=== PATIENT | male | born 1970 | race Caucasian/White ===

== ENCOUNTER 2022-10-13 10:14 | Day surgery (SDC) | payer OTHER, SELFPAY ==
--- NOTE | 2022-10-13 | PATH_ITS ---
[facility] Accession Number: [id number] No. of containers..01 Tissue . 01 Material submitted: . sigmoid colon - SIGMOID COLON POLYP . 01 Diagnosis: Sigmoid Colon, Polyp, Biopsy: Tubular adenoma, three fragments. MRV 10/16/2022 1518 Local . 01 Electronically signed: . Mena Zepeda MD, Pathologist NPI- [id number] . 01 Gross description: . SIGMOID COLON POLYP: Received in formalin are 3 fragment(s) of weston, soft tissue measuring 0.2 x 0.2 x 0.2 cm to 0.4 x 0.3 x 0.2 cm submitted entirely in 1 cassette(s) /MICHAEL 10/14/2022 1926 Local . 01 Pathologist provided ICD-10: D12.5 . 01 CPT . 008512 Specimen Comment: A courtesy copy of this report has been sent to [phone] Performed at: 01 [facility] [address] [place] [address] [address] [facility], [place], [place] [id number] MD Bhaskar Whipple MD Phone: [phone]
[2022-10-13 10:28] VITALS: BP 114/64; PULSE 71; RESP 21; TEMP 36.6; O2SAT 95; BMI 26.2
[2022-10-13] MEDS: LACTATED RINGERS 1,000 ML 200 ML IV (11:00)
--- NOTE | 2022-10-13 11:43 | PM.HP.1 ---
History of Present Illness History of Present Illness Date Patient Seen: 10/13/22 Time Patient Seen: 11:43 Chief complaint: Screening Colonoscopy Narrative: The patient presents for colorectal screening. They have never had any previous examination for such. Grandfather had colon cancer but no first-degree family members with colon cancer. On further history denies any recent gastrointestinal symptoms. No nausea, vomiting, abdominal pain, loss of appetite, unexplained weight loss, change in bowel habits, or blood per rectum. PFSH Medical History (Updated 10/13/22 @ 10:26 by Sayda Petty RN) Hernia Surgical History (Updated 10/13/22 @ 10:26 by Sayda Petty RN) S/P lumbar microdiscectomy Social History household members: spouse Smoking Status: Former smoker alcohol intake: current Meds Home Medications and Allergies Allergies Allergy/AdvReac Type Severity Reaction Status Date / Time No Known Drug Allergies Allergy Verified 10/13/22 10:45 Exam Vital Signs (past 8 hours): - 10/13/22 10:28 Temperature 97.8 F Pulse Rate 71 Respiratory Rate 21 Blood Pressure 114/64 Pulse Oximetry 95 Oxygen Delivery Method Room Air Oxygen Delivery Method Room Air Narrative Exam Narrative: General adult male alert oriented no acute distress Abdomen soft nontender nondistended Assessment & Plan Assessment & Plan narrative: The patient requires colorectal screening and colonoscopy is recommended. Technical details were discussed. Risks, benefits, alternatives explained. Risks including but not limited to myocardial infarction, aspiration, bleeding, pain, missed lesion, incomplete examination, need for further radiographic studies, colonic perforation, and need for major abdominal surgery were discussed. All questions were answered to their satisfaction, and they are in agreement with this plan.
--- NOTE | 2022-10-13 12:17 | PM.OP.COLON ---
Operative Date/Time/Diagnoses Date of procedure: 10/13/22 Time of procedure: 12:17 Pre-op diagnosis: Colorectal screening Post-op diagnosis: other (Colonic polyp x1) Procedure & Clinicians Study performed: Colonoscopy and polypectomy Same procedure as scheduled: Yes Indications: Colorectal screening Surgeon: Trent Verduzco Procedure Notes Procedure in detail: The history and physical was performed/updated and the patient is ASA class is 1. The procedure was discussed in detail with the patient. Potential risks complications including infection, bleeding, missed diagnosis, perforation, need for surgery, and were explained. Their questions were answered and informed consent was obtained. Patient was brought to the procedure room and placed standard monitoring equipment. The patient's vital signs were monitored continuously throughout the entire procedure. Prior to starting time-out was performed. The patient was placed in the left lateral recumbent position. Procedural sedation was administered by anesthesia. Examination began with a thorough inspection of the perianal area there was no evidence of fissures, fistulae, external hemorrhoids or cutaneous malignancy. The colonoscopy scope was then placed into the anal canal and was advanced to the cecum, which was identified by the ileocecal valve, the appendiceal orifice and the confluence of the taenia. The scope was then slowly withdrawn examining colon thoroughly in all directions, irrigating it of any residual stool. Within the sigmoid colon there was a 1 cm polyp which was removed with cold snare in its entirety. The remainder of the colon was unremarkable. The patient tolerated the procedure well. They will be discharged once criteria are met. The prep was of good/excellent quality. The withdrawl time was 7 minutes. Specimen(s): other (Sigmoid polyps) Impression: Colonic polyp x1 Post-procedure Recommendations: High fiber diet Plan for aftercare: Follow-up is dependent on pathology findings Disposition: same day surgery
[2022-10-13 12:18] VITALS: BP 105/66; PULSE 93; RESP 18; TEMP 36.5; O2SAT 95
[2022-10-13 12:23] VITALS: BP 104/60; PULSE 85; RESP 15; TEMP 36.5; O2SAT 97
[2022-10-13 12:27] VITALS: BP 110/55; PULSE 81; RESP 15; TEMP 36.4; O2SAT 98
[2022-10-13 12:35] VITALS: BP 109/79; PULSE 73; RESP 18; TEMP 36.4; O2SAT 99
== END 2022-10-13 12:42 | disposition home or self-care (01) ==
PROVIDERS: PCP Naturopath; Referring Provider Surgery; Visit Provider Surgery
PROC: 0DJD8ZZ Inspection of Lower Intestinal Tract, Via Natural or Artificial Opening Endoscopic (ICD-10-PCS; CPT 45378; principal; 2022-10-13 11:15)
DX: Z12.11 Encounter for screening for malignant neoplasm of colon (principal); D12.5 Benign neoplasm of sigmoid colon
CPT/HCPCS: 45385; J2704

== ENCOUNTER → 2023-08-20 08:00 | Outpatient (CLI) | payer OTHER, SELFPAY | PROVIDERS: PCP Naturopath; Visit Provider Registered Nurse | DX: J02.9 Acute pharyngitis, unspecified (principal) | CPT/HCPCS: 87070 ==

== ENCOUNTER → 2023-08-27 08:51 | Outpatient (CLI) | payer OTHER, SELFPAY ==
--- NOTE | 2023-08-27 08:53 | DI.RAD.S_ITS ---
PROCEDURE: XR CHEST 2V INDICATIONS: Cough TECHNIQUE: 2 views of the chest were acquired. COMPARISON: None. FINDINGS: Surgical changes and devices: None. Lungs and pleura: Increased pulmonary vasculature and peribronchial cuffing. Mediastinum: Mediastinal contours are normal. Heart size is normal. Bones and chest wall: No suspicious bony abnormalities. Soft tissues appear unremarkable. IMPRESSION: Suspect mild pulmonary edema. No consolidative pneumonia. Dictated by: Tej Lam M.D. on 08/27/2023 at 12:42 Approved by: Tej Lam M.D. on 08/27/2023 at 12:42
== END ==
PROVIDERS: PCP Naturopath; Referring Provider Nurse Practitioner Family; Visit Provider Nurse Practitioner Family
DX: R05.9 Cough, unspecified (principal)
CPT/HCPCS: 71046

== ENCOUNTER 2023-08-27 15:04 | Emergency (ER) | payer OTHER, SELFPAY ==
[2023-08-27 15:07] VITALS: BP 132/75; PULSE 113; RESP 20; TEMP 37; O2SAT 93; BMI 25.2
[2023-08-27 15:24] VITALS: BP 121/77; PULSE 103; O2SAT 94
[2023-08-27 15:30] VITALS: BP 131/58; PULSE 100; RESP 24; O2SAT 94
--- NOTE | 2023-08-27 15:42 | ED.GENADULT ---
HPI - General Adult General Chief complaint: Shortness of Breath/Dyspnea Stated complaint: sent by wic/flu/water in lungs Time Seen by Provider: 08/27/23 15:35 Source: patient Mode of arrival: Ambulatory History of Present Illness HPI narrative: 52-year-old male presents with cough, shortness of breath. He was seen in walk-in clinic today earlier with headache, fevers, cough for 12 days. He was sent here for further evaluation. He recently tested negative for strep. He has been trying Tessalon Perles for cough. He notes cough, myalgias to me for about 2 weeks on clarification, denying any recent antibiotics. No shortness of breath other than when coughing. No chest or back or abdominal or flank pain, lightheadedness or passing out, vomiting or diarrhea. He denies weight loss. No recent travel or surgery. No one around him has been sick to his knowledge. No other new concerns. Related Data Previous Rx's Medication Instructions Recorded benzonatate 200 mg capsule 200 mg PO TID PRN cough #30 caps 08/20/23 albuterol sulfate 90 mcg/actuation 2 puff inhalation Q6H PRN 08/27/23 aerosol inhaler shortness of breath or wheezing #6.7 grams doxycycline hyclate 100 mg capsule 100 mg PO BID 7 days #14 caps 08/27/23 Allergies Allergy/AdvReac Type Severity Reaction Status Date / Time No Known Drug Allergies Allergy Verified 08/27/23 08:41 Review of Systems Review of Systems Narrative: Constitutional: + fever, no chills Eyes: no visual disturbance, no discharge Ears, Nose, Mouth, Throat: no rhinorrhea, no sore throat Cardiovascular: no chest pain, no palpitations Respiratory: + cough, no shortness of breath other than when coughing Gastrointestinal: no abdominal pain, no vomiting, no diarrhea Genitourinary: no dysuria, no hematuria Musculoskeletal: no back pain, no neck stiffness Skin: no rash, no wound Neurological: no focal weakness, no focal numbness Patient History Medical History Hernia Surgical History S/P lumbar microdiscectomy Social History household members: spouse Smoking Status: Former smoker alcohol intake: current Smoking Status: Former smoker alcohol intake frequency: holidays/special occasions only Substance Use Type: does not use Exam Narrative Exam Narrative: Const: no acute distress, non toxic appearing; calm, conversant, pleasant; frequent cough Eyes: PERRLA, EOMI ENT: mucous membranes moist Neck: supple, non-tender Resp: no respiratory distress, crackles right lower lobe, with good aeration bilaterally Card: regular rate and rhythm, no murmurs Abd: non tender diffusely, no rigidity or rebound or guarding Back: no T or L spine tenderness, no CVA tenderness bilaterally Extrem: no deformities, no swelling bilateral lower extremities, 2+ distal pulses all extremities Neuro: ANOx4, psychiatric social worker supervisor grossly intact, grossly intact sensation and strength all extremities Skin: no rash, warm and dry Initial Vital Signs Initial Vital Signs: Vital Signs Temperature 98.6 F 08/27/23 15:07 Pulse Rate 113 H 08/27/23 15:07 Respiratory Rate 20 08/27/23 15:07 Blood Pressure 132/75 08/27/23 15:07 Pulse Oximetry 93 08/27/23 15:07 Oxygen Delivery Method Room Air 08/27/23 15:07 Course Course Course Narrative: This patient's history is highly suggestive of infectious cause for presentation such as viral syndrome, with bacterial pneumonia or superimposed bacterial infection possible. I did discuss with him that given the length of his symptoms, alternatives (while still unlikely) such as malignancy are possible. He has no clear chest pain or shortness of breath, with clear infectious symptoms, arguing against PE, ACS or myocarditis. No PTX on CXR. CXR has low sensitivity for PNA, and my history and exam are most suggestive of this. CBC with no leukocytosis or anemia or thrombocytopenia. COVID, flu, RSV swabs negative. Again however, patient's symptoms seemed to clearly support potential pneumonia diagnosis, with my exam supportive of this as well. In this setting, with labs as obtained below overall reassuring, I think pneumonia is most likely clinically. I recommended 7 day course of b.i.d. 100 mg p.o. doxycycline, which we started here. I offered additional testing such as CT scan of chest, however in shared decision-making with patient, given he has not received any antibiotics thus far and pneumonia is likely, we agree that course of antibiotics with very close reassessment and follow-up seems reasonable at this time. He understands that if symptoms do not completely resolve, I have strongly recommended additional imaging such as CT. As he currently appears overall stable, well-perfused, satting well on room air with no respiratory distress, I think this plan is reasonable, and we are discharging in stable condition. Patient and spouse at bedside agree. Repeat exam and vital signs reassuring. Questions answered. Plan reviewed. Patient discharged in stable condition. --- Radiology review of imaging below, which I agree with on my independent review: FINDINGS: Surgical changes and devices: None. Lungs and pleura: Increased pulmonary vasculature and peribronchial cuffing. Mediastinum: Mediastinal contours are normal. Heart size is normal. Bones and chest wall: No suspicious bony abnormalities. Soft tissues appear unremarkable. IMPRESSION: Suspect mild pulmonary edema. No consolidative pneumonia. Dictated by: Tej Lam M.D. on 08/27/2023 at 12:42 Orders Ordered: ED Orders 08/27/23 15:15 Covid-19 + FLU A/B + RSV - PCR Stat 08/27/23 15:17 EKG-12 Lead Stat RT Consult Eval and Treat NOW 08/27/23 15:20 Complete Blood Count AUTO DIFF Stat Comprehensive Metabolic Panel Stat Lactate (Lactic Acid) Stat Lipase Stat PTT Partial Thromboplastin Richie Stat Procalcitonin Stat Prothrombin Time INR Stat 08/27/23 15:29 Blood Culture Stat Discontinued Medications Doxycycline Hyclate (Doxycycline Hyclate 100 Mg Tablet) 100 mg PO NOW ONE Stop: 08/27/23 16:40 Last Admin: 08/27/23 16:47 Dose: 100 mg Documented By: GEO Sodium Chloride (Normal Saline 0.9%) 1,000 mls @ 1,000 mls/hr IV BOLUS ONE Stop: 08/27/23 16:16 Last Infusion: 08/27/23 16:50 Dose: Infused Documented By: Admin: 08/27/23 16:17 Dose: 1,000 mls/hr Documented By: GEO Ondansetron HCl (Ondansetron 4 Mg/2 Ml Inj) 4 mg IV NOW PRN PRN Reason: Nausea And Vomiting Ondansetron HCl (Ondansetron 4 Mg Odt) 4 mg SL NOW PRN PRN Reason: Nausea And Vomiting Vital Signs Vital signs: Vital Signs - 8 hr 08/27/23 15:07 08/27/23 15:24 08/27/23 15:24 Temperature 98.6 F Pulse Rate 113 H 103 H Respiratory Rate 20 Blood Pressure 132/75 121/77 Pulse Oximetry 93 94 Oxygen Delivery Method Room Air 08/27/23 15:30 08/27/23 15:30 08/27/23 16:05 Temperature Pulse Rate 100 H 104 H Respiratory Rate 24 Blood Pressure 131/58 L Pulse Oximetry 94 93 Oxygen Delivery Method Room Air 08/27/23 16:30 08/27/23 16:47 08/27/23 16:47 Temperature Pulse Rate 90 91 H Respiratory Rate 21 21 Blood Pressure 126/75 Pulse Oximetry 93 94 Oxygen Delivery Method Medical Decision Making Lab Data 08/27/23 15:20 08/27/23 15:20 Labs: Lab Results 08/27/23 08/27/23 Range/Units 15:15 15:20 WBC 9.1 (4.5-11.0) X10^3/uL RBC 5.03 (4.5-5.9) X10^6/uL Hgb 14.6 (13.5-17.5) g/dL Hct 43.7 (41-53) % MCV 86.8 (80-100) fL MCH 29.1 (26-34) PG MCHC 33.5 (30-36) % RDW 13.3 (11.6-14.8) % Plt Count 337 (150-400) X10^3/uL Neut % (Auto) 81.9 H (50-75) % Lymph % (Auto) 11.3 L (25-40) % [place] % (Auto) 5.7 (3-14) % Eos % (Auto) 0.9 L (2-4) % Baso % (Auto) 0.2 (0-2) % Neut # (Auto) 7500 H (5956-1064) /uL Lymph # (Auto) 1000 L (4675-2375) /uL [place] # (Auto) 500 (0-900) /uL Eos # (Auto) 100 (0-450) /uL Baso # (Auto) 0 (0-100) /uL PT 13.9 H (9.4-12.5) SECONDS INR 1.2 (0.9-1.3) APTT 31 (25.1-36.5) SECONDS Sodium 139 (137-145) mmol/L Potassium 3.8 (3.4-5.1) mmol/L Chloride 103 (98-107) mmol/L Carbon Dioxide 28 (22-32) mmol/L BUN 7 L (9-20) mg/dL Creatinine 0.84 (0.66-1.25) mg/dL Estimated GFR > 60 (>60) mL/min BUN/Creatinine Ratio 8.3 (6-22) Glucose 101 H (70-100) mg/dL Lactate 1.4 (0.7-2.1) mmol/L Calcium 9.2 (8.4-10.2) mg/dL Total Bilirubin 0.7 (0.2-1.3) mg/dL AST 29 (17-59) IU/L ALT 34 (<50) IU/L Alkaline Phosphatase 61 (38-126) U/L Total Protein 7.9 (6.3-8.2) g/dL Albumin 4.1 (3.5-5.0) g/dL Globulin 3.8 (1.7-4.1) g/dL Albumin/Globulin Ratio 1.1 (1.0-2.8) Lipase 176 (23-300) U/L Procalcitonin 0.09 (<0.5) ng/mL SARS-CoV-2 (PCR) Negative (Negative) Influenza A (RT-PCR) Flu a negative (NEGATIVE) Influenza B (RT-PCR) Flu b negative (NEGATIVE) RSV (PCR) Negative (Negative) Urine Dip Bedside Urine Glucose Negative Bedside Urine Bilirubin - Negative Bedside Urine Ketone - Negative Urine Specific [place] 1.010 Bedside Urine Occult Blood - Negative Bedside Urine pH 6.0 Bedside Urine Protein - Negative Bedside Urine Urobilinogen - Negative Bedside Urine Nitrite - Negative Bedside Urine Leukocytes - Negative Esterase Point of care testing: Urine Dip Bedside Urine Glucose Negative Bedside Urine Bilirubin - Negative Bedside Urine Ketone - Negative Urine Specific [place] 1.010 Bedside Urine Occult Blood - Negative Bedside Urine pH 6.0 Bedside Urine Protein - Negative Bedside Urine Urobilinogen - Negative Bedside Urine Nitrite - Negative Bedside Urine Leukocytes - Negative Esterase Discharge Plan Departure Patient Disposition: Home Clinical Impression: Community acquired pneumonia, Acute dyspnea Instructions: DI for Cough -- Adult Activity Restrictions/Additional Instructions: It was a pleasure taking care of you today. It is important to fully read and understand the below. Please ask us if you have any questions. We think the most likely cause of your symptoms is an infection, such as bronchitis, with a bacterial infection possible. Please take doxycycline as prescribed twice daily for 7 days. It is very important you are reassessed by a doctor within 3-5 days to ensure you are improving. If you not improve within 48 hours, or you worsen at anytime, immediately return. You may need a CT scan for further assessment at that point as we discussed. No tests or assessments are perfect, and your condition could filter changer time. If your symptoms change or worsen, it is very important you immediately seek medical care. If you have any new or worsening pain, lightheadedness or passing out, shortness of breath, fever, vomiting, confusion, numbness, weakness, or anything else that concerns you, please immediately seek medical care. If you have been prescribed any medications: please read the drug package inserts on how to properly use the medication and any potential side effects. If you had labs (blood tests) or imaging (CT scan or x-rays) done during your visit: please follow up on the results of these with your primary care doctor, as discussed. In addition, please know the results we received today may be preliminary. Our usual practice is to follow up on tests within a few days of a patient's discharge from the Emergency Department and notify you of any changes. These may lead to changes to your treatment plan. However, the best way to obtain and interpret these test results is through your Primary Care Provider. If you need to update your contact information, please stop by the director of front office and alert the Registration personnel before you leave the Emergency Department. Thank you for the opportunity to participate in your healthcare. We are always here and happy to see you in the future. Prescriptions: New doxycycline hyclate 100 mg capsule 100 mg PO BID 7 Days Qty: 14 0RF No Action benzonatate 200 mg capsule 200 mg PO TID PRN (Reason: cough) Qty: 30 0RF albuterol sulfate 90 mcg/actuation HFA aerosol inhaler 2 puff inhalation Q6H PRN (Reason: shortness of breath or wheezing) Qty: 6.7 0RF Referrals: Agatha Johansen ND [Primary Care Provider] - Stand Alone Forms: Patient Portal/API
[2023-08-27 15:43] LABS: Add Manual Diff / Slide Review NO; Basophils Absolute Auto 0 /uL (0-100); Basophils Percent Auto 0.2 % (0-2); Eosinophils Absolute Auto 100 /uL (0-450); Eosinophils Percent Auto 0.9 % (2-4); Hematocrit 43.7 % (41-53); Hemoglobin 14.6 g/dL (13.5-17.5); Lymphocytes Absolute Auto 1000 /uL (1100-4500); Lymphocytes Percent Auto 11.3 % (25-40); Mean Corpuscular HGB Conc 33.5 % (30-36); Mean Corpuscular Hemoglobin 29.1 PG (26-34); Mean Corpuscular Volume 86.8 fL (80-100); Monocytes Absolute Auto 500 /uL (0-900); Monocytes Percent Auto 5.7 % (3-14); Neutrophils Absolute Auto 7500 /uL (1500-7000); Neutrophils Percent Auto 81.9 % (50-75); Platelet Count 337 X10^3/uL (150-400); Red Blood Cell Count 5.03 X10^6/uL (4.5-5.9); Red Cell Distribution Width 13.3 % (11.6-14.8); White Blood Cell Count 9.1 X10^3/uL (4.5-11.0)
[2023-08-27 15:50] LABS: INR 1.2 (0.9-1.3); Prothrombin Time 13.9 SECONDS (9.4-12.5)
[2023-08-27 15:53] LABS: PTT Partial Thromboplastin Tim 31 SECONDS (25.1-36.5)
[2023-08-27 15:56] LABS: Influenza A - CEPHEID Flu A NEGATIVE (NEGATIVE); Influenza B - CEPHEID Flu B NEGATIVE (NEGATIVE); Respiratory Syncytial Virus Negative (Negative)
[2023-08-27 16:03] LABS: Alanine Aminotransferase 34 IU/L (<50); Albumin 4.1 g/dL (3.5-5.0); Albumin Globulin Ratio 1.1 (1.0-2.8); Alkaline Phosphatase 61 U/L (38-126); Aspartate Aminotransferase 29 IU/L (17-59); BUN Creatinine Ratio 8.3 (6-22); Bilirubin Total 0.7 mg/dL (0.2-1.3); Blood Urea Nitrogen 7 mg/dL (9-20); Calcium 9.2 mg/dL (8.4-10.2); Carbon Dioxide 28 mmol/L (22-32); Chloride 103 mmol/L (98-107); Estimated Glomerular Filt Rate > 60 mL/min (>60); Globulin 3.8 g/dL (1.7-4.1); Glucose 101 mg/dL (70-100); HEMOLYSIS < 15 (0-50); Lipase 176 U/L (23-300); Potassium 3.8 mmol/L (3.4-5.1); Sodium 139 mmol/L (137-145); Total Protein 7.9 g/dL (6.3-8.2)
[2023-08-27 16:04] LABS: Lactate (Lactic Acid) 1.4 mmol/L (0.7-2.1)
[2023-08-27 16:05] VITALS: PULSE 104; O2SAT 93
[2023-08-27 16:06] LABS: COVID-19 CEPHEID 4-PLEX PCR Negative (Negative)
[2023-08-27] MEDS: SODIUM CHLORIDE 0.9% 1,000 ML 1000 ML IV (16:17)
[2023-08-27 16:20] LABS: Procalcitonin 0.09 ng/mL (<0.5)
[2023-08-27 16:30] VITALS: PULSE 90; RESP 21; O2SAT 93
[2023-08-27 16:47] VITALS: BP 126/75; PULSE 91; RESP 21; O2SAT 94
[2023-08-27] MEDS: DOXYCYCLINE HYCLATE 100 MG TABLET PO (16:47)
== END 2023-08-27 16:53 | disposition home or self-care (01) ==
PROVIDERS: Emergency Provider Emergency Medicine; PCP Naturopath
DX: J18.9 Pneumonia, unspecified organism (principal); R06.00 Dyspnea, unspecified; R00.0 Tachycardia, unspecified; R05.9 Cough, unspecified; Z87.891 Personal history of nicotine dependence
CPT/HCPCS: 0241U; 36415; 71046; 80053; 81003; 83605; 83690; 84145; 85025; 85610; 85730; 87040; 93005; 99284